=== PATIENT | male | born 1980 | race Caucasian/White ===

== ENCOUNTER 2021-09-14 17:44 | Emergency (ER) | payer OTHER ==
[~2021-09-14] VITALS: Ht 182.9 cm; Wt 119.6 kg
[2021-09-14] MEDS ORDERED: PROAIR HFA8.5 GM INH (18:01)
[2021-09-14] MEDS ORDERED: SYMBICORT 80-10.2 GM INH (18:02)
--- OUTSIDE RECORDS SUMMARY | 2021-09-14 19:10 | XMS ---
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 Duy has no Care Guidelines for this patient. Jacobo VISIT COUNT (12 MO.) 1 [facility] 1 [facility] TOTAL 2 NOTE: Visits indicate total known visits. ED/C VISIT TRACKING (12 MO.) 09/14/2021 17:45 [facility] OR TYPE: Emergency COMPLAINT: - COUGH 09/09/2021 08:28 [facility] Bhargav Durant ID TYPE: Emergency DIAGNOSES: - Epistaxis - Epistaxis INPATIENT VISIT TRACKING (12 MO.) No inpatient visits to display in this time frame [email or web address]
== END 2021-09-14 19:15 | disposition home or self-care (01) ==
LOC: ED 17:44
DX: J11.1 Influenza due to unidentified influenza virus with other respiratory manifestations (principal); J45.909 Unspecified asthma, uncomplicated; Z20.822 Contact with and (suspected) exposure to COVID-19; Z79.51 Long term (current) use of inhaled steroids
CPT/HCPCS: 99284; C9803; U0003